=== PATIENT | female | born 1985 | race Caucasian/White ===

== ENCOUNTER 2017-06-25 11:55 | Inpatient (IN) ==
[2017-06-25] MEDS ORDERED: SODIUM CHLORIDE 0.9% INJ PRN (21:09)
[2017-06-25] MEDS ORDERED: BRETHINE SUBQ PRN (21:09)
[2017-06-25] MEDS ORDERED: ZOFRAN IV PRN ×2 (21:09)
[2017-06-25] MEDS ORDERED: PHENERGAN INJ PRN (21:09)
[2017-06-25] MEDS ORDERED: KEFZOL 1 GM/D5W 1 GM/50 ML IVPB IV PRN (21:09)
[2017-06-25] MEDS ORDERED: PEPCID IV PRN (21:09)
[2017-06-25] MEDS ORDERED: STADOL IV PRN ×3 (21:09)
[2017-06-25] MEDS ORDERED: TYLENOL PO PRN (21:09)
[2017-06-25] MEDS ORDERED: AMBIEN PO PRN (21:09)
[2017-06-25] MEDS ORDERED: PITOCIN 30 UNITS/LR 30 UNITS/500 ML IV.SOLN IV SCH (21:09)
[2017-06-25] MEDS ORDERED: DEMEROL INJ PRN (21:09)
[2017-06-25] MEDS: LR 1,000 ML IV SCH (21:55)
[2017-06-25] MEDS ORDERED: AMPICILLIN 2 GM/NS 2 GM/100 ML IVPB IV ONE (22:00)
[2017-06-26] MEDS ORDERED: CERVIDIL VAGINAL VAG ONE
[2017-06-26 01:08] LABS: URINE SOURCE VOIDED
[2017-06-26 01:08] LABS: MANUAL DIFF NEEDED? NO
[2017-06-26 01:31] LABS: BASO% 0.1 % (0.0-0.8); EOS# 0.07 X1000 (0.0-0.7); EOS% 0.8 % (0.0-10.0); HEMATOCRIT 34.1 % (37.0-47.0); HEMOGLOBIN 11.5 g/dL (12.0-16.0); IMM GRAN# 0.03 X1000 (0.0-0.04); IMM GRAN% 0.3 % (0.0-0.5); LYMPH# 2.65 X1000 (1.2-3.4); LYMPH% 28.9 % (20.5-51.1); MCH 29.8 PG (27-31); MCHC 33.7 g/dL (33-37); MCV 88.3 FL (81-99); MONO# 0.72 X1000 (0.11-0.59); MONO% 7.8 % (1.7-9.3); MPV 11.7 FL (7.4-10.4); NEUT% 62.1 % (42.2-75.2); PLT 202 X1000 (130-400); RBC 3.86 XMIL (4.2-5.4)
[2017-06-26 01:33] LABS: BILIRUBIN URINE NEGATIVE (NEGATIVE); BLOOD URINE NEGATIVE (NEGATIVE); CLARITY SL. CLOUDY (CLEAR); COLOR YELLOW; LEUKOCYTES URINE 1+ (NEGATIVE); NITRITE URINE NEGATIVE (NEGATIVE); PROTEIN URINE NEGATIVE (NEGATIVE); UROBILINOGEN URINE 1+(1 mg/dL)
[2017-06-26] MEDS: AMPICILLIN 1 GM/NS 1 GM/50 ML IVPB IV SCH ×3 (02:40→10:22)
[2017-06-26] MEDS: LR 1,000 ML IV SCH ×2 (07:00→09:08)
[2017-06-26] MEDS ORDERED: FENTANYL-BUPIV-NS 2 MCG-0.1% 200 ML EPIDURAL PRN (09:01)
[2017-06-26] MEDS ORDERED: MINERAL OIL TOP ONE (10:03)
[2017-06-26] MEDS ORDERED: XYLOCAINE-MPF 1% INJ ONE (10:04)
[2017-06-26] MEDS ORDERED: XYLOCAINE-MPF 1% INJ PRN (11:17)
[2017-06-26] MEDS ORDERED: MINERAL OIL PO PRN (11:17)
[2017-06-26] MEDS ORDERED: CYTOTEC PO PRN (11:17)
[2017-06-26] MEDS ORDERED: M-M-R II VACCINE SUBQ ONE (11:17)
[2017-06-26] MEDS ORDERED: BOOSTRIX VACCINE IM ONE (11:17)
[2017-06-26] MEDS ORDERED: HYDROXYZINE IM PRN (11:17)
[2017-06-26] MEDS ORDERED: PITOCIN 20 UNITS/LR 20 UNITS/1,000 ML IV.SOLN IV SCH (11:17)
[2017-06-26] MEDS ORDERED: HYDROXYZINE PO PRN (11:17)
[2017-06-26] MEDS ORDERED: PERI MEDS (DERMOPLAST/NUPERCAINAL/TUCKS) MISC PRN (11:17)
[2017-06-26] MEDS ORDERED: PITOCIN 30 UNITS/LR 30 UNITS/500 ML IV.SOLN IV ONE (11:17)
[2017-06-26] MEDS ORDERED: NORCO-5 PO PRN (11:17)
[2017-06-26] MEDS ORDERED: PITOCIN IM PRN (11:17)
[2017-06-26] MEDS ORDERED: BENADRYL PO PRN (11:17)
[2017-06-26] MEDS ORDERED: BENADRYL IV PRN (11:17)
[2017-06-26] MEDS ORDERED: AMBIEN PO PRN (11:17)
[2017-06-26] MEDS: MOTRIN PO PRN (16:41)
[2017-06-26] MEDS: NORCO-10 PO PRN (16:41)
[2017-06-26] MEDS: PERICOLACE PO SCH (20:19)
[2017-06-27] MEDS: NORCO-10 PO PRN ×2 (02:13→20:48)
[2017-06-27] MEDS: MOTRIN PO PRN ×3 (02:13→20:48)
[2017-06-27 06:12] LABS: HEMATOCRIT 36.5 % (37.0-47.0); HEMOGLOBIN 11.9 g/dL (12.0-16.0); MCH 29.1 PG (27-31); MCHC 32.6 g/dL (33-37); MCV 89.2 FL (81-99); MPV 11.3 FL (7.4-10.4); RBC 4.09 XMIL (4.2-5.4)
[2017-06-27] MEDS: PERICOLACE PO SCH (20:48)
[2017-06-28 08:20] VITALS: BP 114/71
--- NOTE | 2017-06-28 15:56 | DISCHARGE SUMMARY ---
ADMISSION DATE: 06/25/2017 DISCHARGE DATE: 06/28/2017 ADMITTING DIAGNOSES: 1. Term . 2. Gestational diabetes. DISCHARGE DIAGNOSES: 1. Term . 2. Gestational diabetes. 3. Vaginal delivery. CONDITION: Stable. DIET: As tolerated. ACTIVITY: Routine . PLAN: Follow up in [address] Bay. [id number] nonsteroidal, vitamins with iron. She can hold the metformin, and have given Lenox 5 #14. Please refer to Ms Rea's records and delivery note. She had done well afterwards. Her glucose has been slightly elevated, but this morning it was 69. She states she feels fine and she is ready go home. VITAL SIGNS: Her vital signs are stable. She is afebrile. PERTINENT EXAMINATION: Her abdomen is slightly distended, but uterus is firm and nontender. LABORATORIES: Hemoglobin 11.9. DISPOSITION: We will discharge with above instructions. cc: MD Aroldo Jacob MD
== END 2017-06-28 13:50 | disposition home or self-care (01) ==
LOC: P.LD 21:07 → P.WC 06-26 14:02
PROVIDERS: ADMIT Obstetrics & Gynecology; ATTEND Obstetrics & Gynecology